=== PATIENT | female | born 1975 | race Caucasian/White ===

== ENCOUNTER 2016-09-15 10:54 | Emergency (ER) | payer SELFPAY | END 2016-09-15 12:16 | disposition home or self-care (01) | LOC: D.ER 10:54 | DX: K08.89 Other specified disorders of teeth and supporting structures (principal); F41.9 Anxiety disorder, unspecified; I50.9 Heart failure, unspecified; F17.200 Nicotine dependence, unspecified, uncomplicated ==

== ENCOUNTER 2017-02-11 17:57 | Emergency (ER) | payer MEDICAID | END 2017-02-11 19:19 | disposition home or self-care (01) | LOC: D.ER 17:57 | DX: M27.3 Alveolitis of jaws (principal); I50.9 Heart failure, unspecified; R68.84 Jaw pain ==

== ENCOUNTER 2017-05-24 14:45 | Emergency (ER) | payer MEDICAID | END 2017-05-24 17:00 | disposition home or self-care (01) | LOC: D.ER 14:45 | DX: S76.011A Strain of muscle, fascia and tendon of right hip, initial encounter (principal); X58.XXXA Exposure to other specified factors, initial encounter; Y93.89 Activity, other specified; Y92.029 Unspecified place in mobile home as the place of occurrence of the external cause; M62.838 Other muscle spasm ==

== ENCOUNTER 2017-05-29 10:58 | Emergency (ER) | payer MEDICAID | END 2017-05-29 14:15 | disposition home or self-care (01) | LOC: D.ER 10:58 | DX: M54.16 Radiculopathy, lumbar region (principal) ==

== ENCOUNTER 2017-06-24 04:44 | Emergency (ER) | payer MEDICAID | END 2017-06-24 05:42 | disposition home or self-care (01) | LOC: D.ER 04:44 | DX: B02.9 Zoster without complications (principal); F17.200 Nicotine dependence, unspecified, uncomplicated ==

== ENCOUNTER 2017-07-06 12:28 | Emergency (ER) | payer MEDICAID | END 2017-07-06 15:20 | disposition home or self-care (01) | LOC: D.ER 12:28 | DX: B02.9 Zoster without complications (principal) ==